=== PATIENT | male | born 1965 | race African-American/Black ===

== ENCOUNTER 2023-12-14 16:24 | Emergency (ER) | payer OTHER ==
[~2023-12-14] VITALS: Ht 172.7 cm; Wt 75.0 kg
[2023-12-14 16:26] VITALS: O2SAT 99
[2023-12-14 17:01] LABS: BASOPHILS % 0.2 % (0.0-2.0); HEMATOCRIT. 31.8 % (42.0-52.0); HEMOGLOBIN. 9.4 g/dL (14.0-18.0); LYMPHOCYTES % 19.6 % (20.0-50.0); MEAN CORPUSCULAR HEMOGLOBIN 20.1 pg (28.0-32.0); MEAN CORPUSCULAR HGB CONC 29.6 g/dL (31.0-37.0); MEAN PLATELET VOLUME 7.8 fl (7.4-10.4); MONOCYTES % 10.2 % (2.0-8.0); PLATELET 165 x1000/uL (130-400); RED BLOOD CELL COUNT 4.68 mill/uL (4.7-6.1); RED CELL DISTRIBUTION WIDTH 16.9 % (11.6-14.6); WHITE BLOOD COUNT 7.5 x1000/uL (4.5-11.0)
[2023-12-14 17:04] LABS: ADD RBC MORPHOLOGY YES; DIFFERENTIAL COMMENT 1
[2023-12-14 17:28] LABS: ALBUMIN 4.2 g/dL (3.2-4.8); CALCIUM 9.6 mg/dL (8.7-10.4); CARBON DIOXIDE 24 mEq/L (21-32); CHLORIDE 110 mEq/L (98-107); CREATININE 1.5 mg/dL (0.6-1.3); POTASSIUM 4.7 mEq/L (3.5-5.1); PROTEIN TOTAL 8.1 g/dL (6.0-8.3); SODIUM 140 mEq/L (136-145); UREA NITROGEN BLOOD 19 mg/dL (9-23)
[2023-12-14 17:29] LABS: ALANINE AMINOTRANSFERASE 35 IU/L (10-49); ASPARTATE AMINOTRANSFERASE 49 IU/L (<34); BILIRUBIN TOTAL 0.5 mg/dL (0.1-1.0)
[2023-12-14 17:42] LABS: GLUCOSE 28 mg/dL (70-105)
[2023-12-14 19:44] LABS: ANISOCYTOSIS 1+; HYPOCHROMASIA 2+; MICROCYTOSIS 3+; PLATELET ESTIMATE NORMAL
[2023-12-14] MEDS ORDERED: DEXT38GE PO (22:06)
[2023-12-14 22:36] VITALS: BP 140/72; PULSE 98; RESP 16
== END 2023-12-14 22:39 | disposition home or self-care (01) ==
LOC: ER 16:24
DX: R41.82 Altered mental status, unspecified (principal); E11.9 Type 2 diabetes mellitus without complications
CPT/HCPCS: 80053; 82962; 85025; 36415; 99283; Z7610 ×2